=== PATIENT | female | born 1960 | race African-American/Black ===

== ENCOUNTER 2019-10-16 16:30 | Emergency (ER) | payer BC ==
[2019-10-16 19:17] VITALS: BP 150/72
--- NOTE | 2019-10-16 19:20 | UC ---
Respiratory Complaint HPI - HPI Summary HPI Summary: 59 yo woman, light smoker, with one week history of cough which has triggered episodes of emesis. This morning, felt unwell and left work after she vomited. She has continued to cough with some production, but no fever or chest pain. Denies smoking related cough or illness, no hx of asthma. At onset, had chills and rigors and might have had a fever. 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 - History of Current Complaint Chief Complaint: UCGeneralIllness Stated Complaint: VOMITING Time Seen by Provider: 10/16/19 19:12 Hx Obtained From: Patient Hx Last Menstrual Period: POST Onset/Duration: Gradual Onset, Lasting Days Timing: Intermittent Episodes Severity Initially: Mild Severity Currently: Moderate Pain Intensity: 3 Character: Cough: Productive Aggravating Factors: Exertion Alleviating Factors: OTC Meds - using a cough suppressant. Associated Signs And Symptoms: Positive: Chills. Negative: Hemoptysis, Dizziness, Edema, URI - Allergies/Home Medications Allergies/Adverse Reactions: Allergies Allergy/AdvReac Type Severity Reaction Status Date / Time Penicillins Allergy Hives Verified 10/16/19 19:10 Home Medications: Home Medications Guaifen/Dextromethorphan/PE [Robitussin Childrens Coug] 1 liq PO DAILY 10/16/19 [History Confirmed 10/16/19] Pheniramine/P-Eph/Acetaminophn [Theraflu Flu & Sore Throat] 1 pkt PO DAILY 10/16 [History Confirmed 10/16/19] PMH/Surg Hx/FS Hx/Imm Hx Previously Healthy: Yes - Surgical History Surgical History: None - Family History Known Family History: Positive: Non-Contributory - Social History Occupation: Employed Full-time Alcohol Use: None Substance Use Type: None Smoking Status (MU): Light Every Day Tobacco Smoker Review of Systems All Other Systems Reviewed And Are Negative: Yes Constitutional: Positive: Fatigue Skin: Positive: Negative Eyes: Positive: Negative ENT: Positive: Negative Respiratory: Positive: Shortness Of Breath - only with coughing, Cough Cardiovascular: Positive: Other - blood pressure elevated today without a hx of htn. Takes BP at work and does not have elevation. Gastrointestinal: Positive: Abdominal Pain - in upper abdomen, Vomiting - on occasion with cough Genitourinary: Positive: Negative Motor: Positive: Negative Neurovascular: Positive: Negative Musculoskeletal: Positive: Negative Neurological/Mental Status: Positive: Negative Psychological: Positive: Negative Is Patient Immunocompromised?: No Physical Exam Triage Information Reviewed: Yes Appearance: Ill-Appearing - looks mildly unwell and fatigued., Pain Distress - mild, moving normally Vital Signs: Initial Vital Signs Temp 98.5 F 10/16/19 19:02 Pulse 76 10/16/19 19:02 Resp 16 10/16/19 19:02 BP 170/87 10/16/19 19:02 Pulse Ox 100 10/16/19 19:02 Eyes: Positive: Conjunctiva Clear ENT: Positive: Pharynx normal, TMs normal Neck: Positive: Supple, Nontender, No Lymphadenopathy Respiratory: Positive: No respiratory distress, Decreased breath sounds, Rhonchi - throughout both lung hollis Cardiovascular: Positive: RRR, No Murmur Abdominal Exam: Other - diastatis recti which reduces easily with palpation. Mildly tender, no guarding or rebound. Abdomen Description: Positive: No Organomegaly, Soft Bowel Sounds: Positive: Present Musculoskeletal Exam: Normal Neurological Exam: Normal Psychological Exam: Normal Skin Exam: Normal Respiratory Course/Dx - Course Course Of Treatment: zithromax for treatment of bronchitis.Antibiotic treatment given due to rales in chest and smoking hx. Continue cough suppressant, Discussed diastasis and follow up with PMD. - Differential Dx/Diagnosis Differential Diagnosis/HQI/PQRI: Asthma, Influenza, Lower Resp Infection, Sinusitis Provider Diagnosis: Bronchitis Discharge ED - Sign-Out/Discharge Documenting (check all that apply): Patient Departure All imaging exams completed and their final reports reviewed: No Studies - Discharge Plan Condition: Stable Disposition: HOME Prescriptions: Azithromyxin TAIWO (NF) [Z-Taiwo (Zithromax) 250 mg tabs #6] 2 tab PO .TODAY, THEN 1 DAILY #6 tab Benzonatate 200 mg PO TID PRN #30 capsule PRN Reason: Cough Patient Education Materials: Acute Bronchitis (ED) Referrals: No Primary Care Phys,NOPCP [Primary Care Provider] - [facility] [place] PHYSICIAN REFERRAL [Outside] Additional Instructions: Take full course of antibiotic to treat bronchitis, and use tessalon perles for cough suppression. Rest at home, ensure hjigh intake of fluids. Your abdominal pain is likely a result of the cough and the diastasis--the separation in the center of your abdominal wall. This can be treated surgically if it is causing continued pain. You have a referral to the Physician Referral Service to help to find a primary care doctor for you to see in follow up. Please check your blood pressure again in a few days because it is running high here today. - Billing Disposition and Condition Condition: STABLE Disposition: Home
[2019-10-16 19:37] LABS: Influenza A Molecular Negative (Negative); Influenza B Molecular Negative (Negative)
== END 2019-10-16 20:15 | disposition home or self-care (01) ==
LOC: UCEAST 16:30
DX: J40 Bronchitis, not specified as acute or chronic (principal); R03.0 Elevated blood-pressure reading, without diagnosis of hypertension; F17.200 Nicotine dependence, unspecified, uncomplicated; Z88.0 Allergy status to penicillin
CPT/HCPCS: 99212; G0463